=== PATIENT | male | born 1960 | race Caucasian/White ===

== ENCOUNTER 2020-09-30 15:31 | Inpatient (IN) | payer MEDICAID ==
[~2020-09-30] VITALS: Ht 172.7 cm; Wt 137.5 kg
--- NOTE | 2020-09-30 15:50 | NUR ---
BIB EMS, PT C/O RIGHT LE SWELLING AND ERRYTHEMA WITH PAIN. HX: CHIROSIS AND HAS BEEN OUT OF HIS MEDICATIONS X 2WEEKS. PT STATES THAT HE DOES HAVE LEG SWELLING WHEN HE DOESN'T TAKE HIS MEDICATIONS. ALL MONITORS PLACED, VSS. PT SOB WITH ANY ACTIVITY, LUNG SOUNDS CLEAR. EKG COMPLETED. CALL LIGHT W/I REACH. ED PROVIDER SANTANAAL PENDING
[2020-09-30] MEDS ORDERED: VANCOMYCIN PER PHARMACY MC ONE (15:57)
--- NOTE | 2020-09-30 15:58 | NUR ---
DR HALEY AT BEDSIDE. PT ASSESSMENT AND POC DISCUSSED INCLUDING PROBABLE ADMIT. QUESTIONS ANSWERED.
[2020-09-30] MEDS ORDERED: SODIUM CHLORIDE FLUSH 10ML SYR IVF ONE (16:00)
[2020-09-30] MEDS ORDERED: HYDROmorphone 2 MG/ML, 1ML ONE ×2 (16:04→17:00)
[2020-09-30] MEDS: HYDROmorphone 1 MG/ML, 1ML INJ IVPush PRN ×2 (16:06→17:08)
[2020-09-30] MEDS ORDERED: VANCOMYCIN 2,500 MG in SODIUM CHLORIDE 0.9% 500 ML IV ONE (16:30)
[2020-09-30 16:44] LABS: BASOPHILS % (AUTO) 0 % (0-1); EOSINOPHILS % (AUTO) 2 % (1-7); LYMPHOCYTES % (AUTO) 7 % (22-44); MEAN CORPUSCULAR HEMOGLOBIN 32.4 pg (27.5-34.5); MEAN CORPUSCULAR HGB CONC 32.6 g/dL (33.2-36.2); MEAN PLATELET VOLUME 7.9 fL (7.4-10.4); MONOCYTES % (AUTO) 14 % (2-9); NEUTROPHILS % (AUTO) 76 % (42-75); PLATELET COUNT 186 x10^3/uL (130-400); RED BLOOD COUNT 3.77 x10^6/uL (4.38-5.82); RED CELL DISTRIBUTION WIDTH 14.2 % (9.4-14.8)
[2020-09-30 16:47] LABS: ALANINE AMINOTRANSFERASE 43 U/L (12-78); ALBUMIN 1.8 g/dL (3.4-5.0); ANION GAP 3 mmol/L (5-15); CALCIUM 8.3 mg/dL (8.5-10.1); CHLORIDE 98 mmol/L (98-107); CREATININE 0.64 mg/dL (0.7-1.3)
[2020-09-30 16:49] LABS: ALKALINE PHOSPHATASE 112 U/L (45-117); BILIRUBIN,TOTAL 1.5 mg/dL (0.2-1.0); TOTAL PROTEIN 6.6 g/dL (6.4-8.2)
[2020-09-30] MEDS ORDERED: LACTULOSE 20 GM/30 ML UDC PO ONE (17:30)
--- NOTE | 2020-09-30 18:34 | NUR ---
DREADH [employer]AME [employer]KER AT BEDSIDE.
[2020-09-30] MEDS ORDERED: LABETALOL 5MG/ML, 20ML IVPush PRN (19:00)
[2020-09-30] MEDS ORDERED: MELATONIN 5 MG TABLET PO PRN (19:00)
[2020-09-30] MEDS ORDERED: ENOXAPARIN 40 MG/0.4 ML SQ SCH (19:00)
[2020-09-30] MEDS ORDERED: ONDANSETRON ODT 4 MG PO PRN (19:00)
[2020-09-30] MEDS ORDERED: DOCUSATE 100 MG CAPSULE PO PRN (19:00)
[2020-09-30] MEDS ORDERED: ONDANSETRON 2MG/ML, 2ML IVPush PRN (19:00)
[2020-09-30] MEDS ORDERED: ENALAPRILAT 1.25 MG/ML, 2ML IVPush PRN (19:00)
[2020-09-30] MEDS ORDERED: BISACODYL 10 MG SUPP PR PRN (19:00)
[2020-09-30] MEDS ORDERED: VANCOMYCIN PER PHARMACY MC PRN (19:00)
[2020-09-30] MEDS ORDERED: ACETAMINOPHEN 325 MG TABLET PO PRN (19:00)
[2020-09-30] MEDS ORDERED: POLYETHYLENE GLYCOL 17 GM PACKET PO PRN (19:00)
--- NOTE | 2020-09-30 19:10 | NUR ---
Pt resting comfortably at this time, denies needs, alert and oriented x4. Sitting up on gurney. Vitals stable.
[2020-09-30] MEDS ORDERED: LACT10SO28 PO (19:14)
[2020-09-30] MEDS ORDERED: SPIR25TA5 PO (19:14)
[2020-09-30] MEDS ORDERED: FURO40TA6 PO (19:14)
[2020-09-30] MEDS ORDERED: OMEP-110 PO (19:14)
[2020-09-30] MEDS ORDERED: MECL-101 PO (19:14)
[2020-09-30] MEDS ORDERED: LEVO25TA4 PO (19:14)
[2020-09-30] MEDS ORDERED: RIFA200T5 PO (19:14)
--- NOTE | 2020-09-30 19:14 | NUR ---
ELIAS RPT TO MARIO JOSEPH
--- NOTE | 2020-09-30 19:46 | NUR ---
Report given to MARIO Aaron no further questions at this time.
[2020-09-30 19:53] LABS: HCT (SEDRATE) 37.4 % (39.2-51.8)
[2020-09-30] MEDS ORDERED: PHARMACOKINETIC MONITORING MC PRN (20:00)
[2020-09-30] MEDS ORDERED: PHARMACOKINETIC CONSULTATION MC ONE (20:00)
[2020-09-30] MEDS ORDERED: LACTULOSE 20 GM/30 ML UDC PO SCH (21:00)
[2020-09-30 21:10] VITALS: BP 149/99
[2020-09-30] MEDS: RIFAXIMIN 550 MG TABLET PO SCH (22:03)
[2020-09-30] MEDS: LACTULOSE 20 GM/30 ML UDC PO SCH (22:04)
[2020-09-30] MEDS: AMPICILLIN/SULBACTAM 3 GM in SODIUM CHLORIDE 0.9% 100 ML IV SCH (22:04)
[2020-10-01 00:39] VITALS: BP 152/81
[2020-10-01] MEDS: HYDROcodone/APAP 5/325 TABLET PO PRN ×2 (00:40→05:55)
[2020-10-01] MEDS: AMPICILLIN/SULBACTAM 3 GM in SODIUM CHLORIDE 0.9% 100 ML IV SCH ×4 (02:53→21:36)
[2020-10-01 05:31] LABS: BASOPHILS % (AUTO) 1 % (0-1); EOSINOPHILS % (AUTO) 3 % (1-7); LYMPHOCYTES % (AUTO) 11 % (22-44); MEAN CORPUSCULAR HEMOGLOBIN 32.7 pg (27.5-34.5); MEAN CORPUSCULAR HGB CONC 32.9 g/dL (33.2-36.2); MEAN PLATELET VOLUME 7.7 fL (7.4-10.4); MONOCYTES % (AUTO) 13 % (2-9); NEUTROPHILS % (AUTO) 72 % (42-75); PLATELET COUNT 222 x10^3/uL (130-400); RED BLOOD COUNT 3.78 x10^6/uL (4.38-5.82); RED CELL DISTRIBUTION WIDTH 14.4 % (9.4-14.8)
[2020-10-01] MEDS: LEVOTHYROXINE 25 MCG TABLET PO SCH (05:32)
[2020-10-01] MEDS: VANCOMYCIN 2,000 MG in SODIUM CHLORIDE 0.9% 500 ML IV SCH ×2 (05:32→17:11)
[2020-10-01 05:38] LABS: ALANINE AMINOTRANSFERASE 42 U/L (12-78); ALBUMIN 1.9 g/dL (3.4-5.0); ANION GAP 4 mmol/L (5-15); CALCIUM 8.5 mg/dL (8.5-10.1); CHLORIDE 101 mmol/L (98-107); CREATININE 0.55 mg/dL (0.7-1.3)
[2020-10-01 05:40] LABS: ALKALINE PHOSPHATASE 126 U/L (45-117); BILIRUBIN,TOTAL 1.5 mg/dL (0.2-1.0); TOTAL PROTEIN 6.8 g/dL (6.4-8.2)
[2020-10-01 07:54] VITALS: BP 131/84
[2020-10-01] MEDS: LACTULOSE 20 GM/30 ML UDC PO SCH ×3 (07:57→21:41)
[2020-10-01] MEDS: RIFAXIMIN 550 MG TABLET PO SCH ×2 (08:03→21:41)
[2020-10-01] MEDS: SPIRONOLACTONE 25 MG TABLET PO SCH (08:03)
[2020-10-01] MEDS ORDERED: SPIRONOLACTONE 25 MG TABLET PO SCH (09:00)
[2020-10-01] MEDS ORDERED: LACTULOSE 20 GM/30 ML UDC PO SCH (09:00)
[2020-10-01 15:06] VITALS: BP 117/74
[2020-10-01 16:00] LABS: CLOSTRIDIUM DIFFICILE ANTIGEN NEGATIVE; CLOSTRIDIUM DIFFICILE TOXIN NEGATIVE (Negative)
[2020-10-01] MEDS: ENOXAPARIN 40 MG/0.4 ML SQ SCH (17:11)
[2020-10-01 19:08] VITALS: BP 127/70
[2020-10-02 00:59] VITALS: BP 104/65
[2020-10-02] MEDS: AMPICILLIN/SULBACTAM 3 GM in SODIUM CHLORIDE 0.9% 100 ML IV SCH ×4 (02:57→20:34)
[2020-10-02] MEDS: VANCOMYCIN 2,000 MG in SODIUM CHLORIDE 0.9% 500 ML IV SCH ×2 (05:02→09:56)
[2020-10-02] MEDS: ENOXAPARIN 40 MG/0.4 ML SQ SCH ×2 (05:02→16:24)
[2020-10-02] MEDS: LEVOTHYROXINE 25 MCG TABLET PO SCH (05:02)
[2020-10-02 06:54] VITALS: BP 126/83
[2020-10-02] MEDS: RIFAXIMIN 550 MG TABLET PO SCH ×2 (09:06→20:31)
[2020-10-02] MEDS: SPIRONOLACTONE 25 MG TABLET PO SCH (09:06)
[2020-10-02] MEDS: LACTULOSE 20 GM/30 ML UDC PO SCH ×3 (09:06→20:31)
[2020-10-02] MEDS: HYDROcodone/APAP 5/325 TABLET PO PRN (09:11)
[2020-10-02 13:05] VITALS: BP 106/64
[2020-10-02 18:36] VITALS: BP 119/62
[2020-10-02] MEDS: VANCOMYCIN 2,500 MG in SODIUM CHLORIDE 0.9% 500 ML IV SCH (22:08)
[2020-10-03 00:09] VITALS: BP 106/63
[2020-10-03] MEDS: ENOXAPARIN 40 MG/0.4 ML SQ SCH ×2 (03:41→16:30)
[2020-10-03] MEDS: AMPICILLIN/SULBACTAM 3 GM in SODIUM CHLORIDE 0.9% 100 ML IV SCH ×4 (03:41→20:54)
[2020-10-03] MEDS: HYDROcodone/APAP 5/325 TABLET PO PRN ×3 (03:47→21:00)
[2020-10-03] MEDS: LEVOTHYROXINE 25 MCG TABLET PO SCH (05:57)
[2020-10-03 07:10] VITALS: BP 106/70
[2020-10-03] MEDS: RIFAXIMIN 550 MG TABLET PO SCH ×2 (08:38→20:54)
[2020-10-03] MEDS: SPIRONOLACTONE 25 MG TABLET PO SCH (08:38)
[2020-10-03] MEDS: LACTULOSE 20 GM/30 ML UDC PO SCH ×4 (08:38→20:54)
[2020-10-03] MEDS: VANCOMYCIN 2,500 MG in SODIUM CHLORIDE 0.9% 500 ML IV SCH ×2 (11:07→22:33)
[2020-10-03 13:56] VITALS: BP 105/70
[2020-10-03 18:59] VITALS: BP 127/76
[2020-10-04 00:18] VITALS: BP 126/78
[2020-10-04] MEDS: AMPICILLIN/SULBACTAM 3 GM in SODIUM CHLORIDE 0.9% 100 ML IV SCH ×2 (03:48→09:35)
[2020-10-04] MEDS: ENOXAPARIN 40 MG/0.4 ML SQ SCH ×2 (03:48→16:27)
[2020-10-04] MEDS: HYDROcodone/APAP 5/325 TABLET PO PRN ×2 (03:49→11:42)
[2020-10-04 05:17] LABS: BASOPHILS % (AUTO) 1 % (0-1); EOSINOPHILS % (AUTO) 11 % (1-7); LYMPHOCYTES % (AUTO) 14 % (22-44); MEAN CORPUSCULAR HEMOGLOBIN 32.6 pg (27.5-34.5); MEAN CORPUSCULAR HGB CONC 33.2 g/dL (33.2-36.2); MEAN PLATELET VOLUME 7.5 fL (7.4-10.4); MONOCYTES % (AUTO) 15 % (2-9); NEUTROPHILS % (AUTO) 59 % (42-75); PLATELET COUNT 253 x10^3/uL (130-400); RED BLOOD COUNT 3.34 x10^6/uL (4.38-5.82); RED CELL DISTRIBUTION WIDTH 14.5 % (9.4-14.8)
[2020-10-04 05:24] LABS: ALBUMIN 1.7 g/dL (3.4-5.0); CALCIUM 8.1 mg/dL (8.5-10.1)
[2020-10-04 05:28] LABS: ALANINE AMINOTRANSFERASE 43 U/L (12-78); ALKALINE PHOSPHATASE 105 U/L (45-117); CREATININE 0.35 mg/dL (0.7-1.3); TOTAL PROTEIN 6.2 g/dL (6.4-8.2)
[2020-10-04] MEDS: LEVOTHYROXINE 25 MCG TABLET PO SCH (05:29)
[2020-10-04 05:36] LABS: ANION GAP 1 mmol/L (5-15); CHLORIDE 107 mmol/L (98-107)
[2020-10-04 08:22] VITALS: BP 130/71
[2020-10-04] MEDS: LACTULOSE 20 GM/30 ML UDC PO SCH ×3 (09:32→21:00)
[2020-10-04] MEDS: SPIRONOLACTONE 25 MG TABLET PO SCH (09:34)
[2020-10-04] MEDS: RIFAXIMIN 550 MG TABLET PO SCH ×2 (09:34→21:00)
[2020-10-04] MEDS: VANCOMYCIN 2,500 MG in SODIUM CHLORIDE 0.9% 500 ML IV SCH (11:37)
[2020-10-04 12:36] VITALS: BP 147/76
[2020-10-04] MEDS: AMOXICILLIN/CLAV 875-125MG TABLET PO SCH (14:32)
[2020-10-04] MEDS: morphine SULFATE 10 MG/ML, 1ML IVPush PRN ×2 (18:22→23:48)
[2020-10-04 19:29] VITALS: BP 124/78
[2020-10-04 23:51] VITALS: BP 116/60
[2020-10-05] MEDS: AMOXICILLIN/CLAV 875-125MG TABLET PO SCH ×2 (03:04→14:59)
[2020-10-05] MEDS: ENOXAPARIN 40 MG/0.4 ML SQ SCH (03:04)
[2020-10-05] MEDS: LEVOTHYROXINE 25 MCG TABLET PO SCH (05:48)
[2020-10-05] MEDS: morphine SULFATE 10 MG/ML, 1ML IVPush PRN (05:48)
[2020-10-05 06:28] LABS: BASOPHILS % (AUTO) 1 % (0-1); EOSINOPHILS % (AUTO) 10 % (1-7); LYMPHOCYTES % (AUTO) 18 % (22-44); MEAN CORPUSCULAR HEMOGLOBIN 33.3 pg (27.5-34.5); MEAN CORPUSCULAR HGB CONC 33.7 g/dL (33.2-36.2); MEAN PLATELET VOLUME 7.5 fL (7.4-10.4); MONOCYTES % (AUTO) 14 % (2-9); NEUTROPHILS % (AUTO) 57 % (42-75); PLATELET COUNT 315 x10^3/uL (130-400); RED BLOOD COUNT 3.68 x10^6/uL (4.38-5.82); RED CELL DISTRIBUTION WIDTH 14.6 % (9.4-14.8)
[2020-10-05 07:42] VITALS: BP 124/75
[2020-10-05] MEDS: SPIRONOLACTONE 25 MG TABLET PO SCH (09:06)
[2020-10-05] MEDS: LACTULOSE 20 GM/30 ML UDC PO SCH (09:06)
[2020-10-05] MEDS: RIFAXIMIN 550 MG TABLET PO SCH (09:06)
[2020-10-05 13:17] VITALS: BP 143/80
[2020-10-05] MEDS ORDERED: AMOX1TAB12 PO (13:34)
[2020-10-05] MEDS ORDERED: OXYC-380 PO (13:36)
== END 2020-10-05 15:15 | disposition home or self-care (01) | DRG 383 ==
LOC: ED 17:42 → EDIP 18:23 → 3N 20:00
PROVIDERS: ADMIT Internal Medicine; ATTEND Family Medicine
DX: L03.115 Cellulitis of right lower limb (principal); E87.1 Hypo-osmolality and hyponatremia; K70.30 Alcoholic cirrhosis of liver without ascites; I10 Essential (primary) hypertension; E03.9 Hypothyroidism, unspecified; K58.9 Irritable bowel syndrome, unspecified; K58.0 Irritable bowel syndrome with diarrhea; R06.01 Orthopnea; R79.89 Other specified abnormal findings of blood chemistry; D72.829 Elevated white blood cell count, unspecified
CPT/HCPCS: 36415; 71045; 80053; 80202; 83735; 85025; 85651; 86140; 87040; 87324; 93005; 96365; 96366; 96375; 96376; G0378; J0295; J1170; J1650; J3370; J2270; J7040